=== PATIENT | female | born 1995 | race Caucasian/White ===

== ENCOUNTER → 2018-10-29 08:52 | Outpatient (CLI) | payer OTHER, MEDICAID, SELFPAY ==
--- NOTE | 2018-10-29 | DI.MRI.S_ITS ---
PROCEDURE: MR LOWER LEG LT WO/W CON INDICATIONS: mass in left thigh TECHNIQUE: Noncontrast coronal T1 spin echo and STIR, sagittal T1 spin echo with fat saturation and STIR, axial T1 spin echo and T2 fast spin echo with fat saturation. After the administration of contrast, axial/sagittal/coronal T1 spin echo with fat saturation through the left femur. COMPARISON: [facility] [place], CR, XR FEMUR 2+ VIEWS LEFT, 10/11/2018, 8:15. FINDINGS: Image quality: Excellent. Bones: The visualized bone marrow demonstrates normal signal on all sequences. The overlying cortex appears intact. No abnormal intraosseous enhancement. Soft tissues: Large focus of ill-defined, superficial fascial fluid along the lateral aspect of the left side measuring up to 10.8 x 3.1 cm in cross-sectional dimension on axial image 25 series 9. This measures approximately 18.6 cm in the cephalocaudad dimension. There are scattered lobules of fat signal intensity seen in the nondependent portion of the fluid. There is peripheral ill-defined scattered enhancement without discrete mass. Non-pathologically enlarged left inguinal lymph nodes incidentally noted. Normal muscle signal intensity. IMPRESSION: Large ill-defined collection of superficial fascial fluid, with multiple prominent fat lobules in the nondependent portion. This could represent posttraumatic hematoma, or seroma (bland or infected). Fat necrosis in the differential. Surrounding ill-defined scattered enhancement presumably reactive without definite mass. Recommend clinical management. Dictated by: Swapnil Carson M.D. on 10/29/2018 at 12:42 Approved by: Swapnil Carson M.D. on 10/29/2018 at 12:49
== END ==
PROVIDERS: Visit Provider Physician Assistant Surgical
DX: R22.42 Localized swelling, mass and lump, left lower limb (principal)
CPT/HCPCS: 73720; A9579